=== PATIENT | male | born 1990 | race Two or more races ===

== ENCOUNTER 2018-06-29 00:10 | Observation (INO) | payer MEDICAID ==
[2018-06-29] MEDS ORDERED: FENTANYL CITRATE INJ/PF 100 MCG/2 ML AMPUL IV ONE (00:52)
[2018-06-29] MEDS ORDERED: NORMAL SALINE 1000 ML 1,000 ML IV ONE ×2 (00:52→03:35)
[2018-06-29] MEDS ORDERED: ONDANSETRON HCL INJ/PF 4 MG/2 ML SDV IV ONE (00:53)
[2018-06-29 01:06] LABS: ABSOLUTE BASOPHILS # (AUTO) 0.1 10^3/uL (0.0-0.2); ABSOLUTE EOSINOPHILS # (AUTO) 0.2 10^3/uL (0.0-0.6); ABSOLUTE LYMPHOCYTES (AUTO) 2.2 10^3/uL (0.5-4.7); ABSOLUTE MONOCYTES (AUTO) 0.8 10^3/uL (0.1-1.4); ABSOLUTE NEUT (AUTO) 10.3 10^3/uL (1.7-8.2); BASOPHILS % (AUTO) 0.4 % (0-2); EOSINOPHILS % (AUTO) 1.6 % (0-6); HEMATOCRIT 44.5 % (37.9-51.0); HEMOGLOBIN 15.3 g/dL (13.5-17.0); LYMPHOCYTES % (AUTO) 16.4 % (13-45); MEAN CORPUSCULAR HEMOGLOBIN 30.8 pg (27.0-33.4); MEAN CORPUSCULAR HGB CONC 34.5 g/dL (32.0-36.0); MEAN CORPUSCULAR VOLUME 89 fl (80-97); PLATELET COUNT 286 10^3/uL (150-450); RED BLOOD COUNT 4.98 10^6/uL (4.35-5.55); RED CELL DISTRIBUTION WIDTH 13.1 % (11.5-14.0); SEGMENTED NEUTROPHILS % (AUTO) 75.6 % (42-78); TOTAL CELLS COUNTED % (AUTO) 100 %; WHITE BLOOD COUNT 13.6 10^3/uL (4.0-10.5)
[2018-06-29 01:25] LABS: ALANINE AMINOTRANSFERASE 59 U/L (21-72); ALBUMIN 4.9 g/dL (3.5-5.0); ALKALINE PHOSPHATASE 73 U/L (38-126); ANION GAP 13 (5-19); ASPARTATE AMINO TRANSFERASE 21 U/L (17-59); BILIRUBIN,DIRECT 0.3 mg/dL (0.0-0.4); BILIRUBIN,TOTAL 0.6 mg/dL (0.2-1.3); BLOOD UREA NITROGEN 12 mg/dL (7-20); CALCIUM 9.8 mg/dL (8.4-10.2); CARBON DIOXIDE 25 mmol/L (22-30); CHLORIDE 103 mmol/L (98-107); GLUCOSE 129 mg/dL (75-110); POTASSIUM 3.6 mmol/L (3.6-5.0); TOTAL PROTEIN 7.8 g/dL (6.3-8.2)
[2018-06-29] MEDS ORDERED: KETOROLAC TROMETHAMINE INJ/PF 30 MG/1 ML SDV IV ONE (01:53)
--- NOTE | 2018-06-29 03:23 | RADIOLOGY REPORT (SQ) ---
EXAM DESCRIPTION: US ABDOMEN LIMITED COMPLETED DATE/TME: 06/29/2018 01:02 CLINICAL HISTORY: abdominal pain COMPARISON: None. TECHNIQUE: Real-time sonographic images of the right upper abdomen were obtained using a curved multihertz transducer. FINDINGS: Pancreas: Pancreas is poorly visualized. Vascular: The visualized portions of the aorta and IVC are unremarkable. Liver: The liver has normal contour and increased echogenicity. Hepatopedal flow in the portal vein. Findings confirmed with color and spectral Doppler imaging. The common bile duct measures 0.4 cm. Gallbladder: Echogenic structure with posterior shadowing in the gallbladder lumen near the gallbladder neck. Positive reported sonographic Florentino sign. No pericholecystic fluid or gallbladder wall thickening. Right Kidney: The right kidney measures 11.2 cm in length. No hydronephrosis, solid renal mass, or shadowing calculi. IMPRESSION: 1. Cholelithiasis with positive reported sonographic Florentino sign. These findings could be seen with acute cholecystitis. 2. Hepatic steatosis.
[2018-06-29] MEDS ORDERED: NORMAL SALINE 1000 ML 1,000 ML IV PRN (03:36)
[2018-06-29] MEDS ORDERED: PIPERACILLIN/TAZOBACTAM 3.375 GM VIAL IV ONE (03:38)
--- NOTE | 2018-06-29 04:00 | ER Document Report ---
ED General - General Chief Complaint: Abdominal Pain Stated Complaint: ABDOMINAL PAIN Time Seen by Provider: 06/29/18 00:48 Mode of Arrival: Ambulatory Information source: Patient Notes: Patient is a 28-year-old male who presents with right upper quadrant abdominal pain. He has a friend who is an chemical analyst at bedside. He states his pain started this evening before he went to bed, but now is getting worse. He feels it is a sharp pain. He reports he has not ate anything out of the usual. The patient is rocking back and forth due to his pain. He has taken some "German stomach medicine" to help with his pain, but it has not helped. TRAVEL OUTSIDE OF THE [place] IN LAST 30 DAYS: No - Related Data Allergies/Adverse Reactions: No Known Allergies Allergy (Unverified 06/29/18 00:13) Past Medical History - General Information source: Friend - Social History Smoking Status: Current Every Day Smoker Chew tobacco use (# tins/day): No Frequency of alcohol use: None Drug Abuse: None Family History: Reviewed & Not Pertinent Patient has suicidal ideation: No Patient has homicidal ideation: No Renal/ Medical History: Denies: Hx Peritoneal Dialysis Review of Systems - Review of Systems Notes: REVIEW OF SYSTEMS: CONSTITUTIONAL : Denies fever, chills, or sweats. Denies recent illness. EENT: Denies eye, ear, throat, or mouth pain or symptoms. Denies nasal or sinus congestion. CARDIOVASCULAR: Denies chest pain. RESPIRATORY: Denies cough, cold, or chest congestion. Denies shortness of breath, difficulty breathing, or wheezing. GASTROINTESTINAL: Positive for abdominal pain. Denies constipation. Last BM: 06/28/18 GENITOURINARY: Denies difficulty urinating, painful urination, burning, frequency, or blood in urine. MUSCULOSKELETAL: Denies neck or back pain or joint pain or swelling. SKIN: Denies rash or skin lesions. HEMATOLOGIC : Denies easy bruising or bleeding. LYMPHATIC: Denies swollen, enlarged glands. NEUROLOGICAL: Denies altered mental status or loss of consciousness. Denies headache. Denies weakness or paralysis or loss of use of either side. Denies problems with gait or speech. Denies sensory or motor loss. PSYCHIATRIC: Denies anxiety or stress or depression. ALL OTHER SYSTEMS REVIEWED AND NEGATIVE. Physical Exam - Vital signs Vitals: Temp Pulse Resp BP Pulse Ox 98.7 F 85 24 H 137/89 H 100 06/29/18 00:16 06/29/18 00:16 06/29/18 00:16 06/29/18 00:16 06/29/18 00:16 - Notes Notes: PHYSICAL EXAMINATION: GENERAL: Well-appearing, well-nourished and in no acute distress. HEAD: Atraumatic, normocephalic. EYES: Pupils equal round and reactive to light, extraocular movements intact, sclera anicteric, conjunctiva are normal. ENT: nares patent, oropharynx clear without exudates. Moist mucous membranes. NECK: Normal range of motion, supple without lymphadenopathy LUNGS: Breath sounds clear to auscultation bilaterally and equal. No wheezes rales or rhonchi. HEART: Regular rate and rhythm without murmurs ABDOMEN: normoactive bowel sounds. Positive Florentino sign. EXTREMITIES: Normal range of motion, no pitting or edema. No cyanosis. NEUROLOGICAL: No focal neurological deficits. Moves all extremities spontaneously and on command. PSYCH: Normal mood, normal affect. SKIN: Warm, Dry, normal turgor, no rashes or lesions noted. Course - Re-evaluation Re-evalutation: 06/29/18 0130 patient is complaining of right upper quadrant pain at this time. He has a positive Florentino sign. He states he has not ate anything out of the usual this evening. He has been having regular bowel movements. 06/29/18 02:00 Patient's labs have been reviewed and he has a leukocytosis of 13,000. Possible differential diagnosis include, cholelithiasis, cholecystitis, nephrolithiasis, diverticulitis, diverticulosis. 06/29/18 0345 patient's right upper quadrant ultrasound shows acute cholecystitis. Patient and his family have been updated on these results. I will call Dr. Robledo for admission. 06/29/18 04:00 Dr. Robledo at bedside to speak with patient in regards to surgery. Will be admitted to the surgical service for observation. - Vital Signs Vital signs: Temp Pulse Resp BP Pulse Ox 98.7 F 85 19 127/77 H 97 06/29/18 00:16 06/29/18 00:16 06/29/18 05:01 06/29/18 05:01 06/29/18 05:01 - Laboratory Result Diagrams: 06/29/18 00:45 06/29/18 00:45 Laboratory results interpreted by me: 06/29/18 06/29/18 06/29/18 00:45 00:45 03:37 WBC 13.6 H Absolute Neutrophils 10.3 H Glucose 129 H Urine Protein 30 H Urine Ketones 20 H Urine Urobilinogen 2.0 H Discharge - Discharge Clinical Impression: Acute cholecystitis Disposition: ADMITTED OBSERVATION Admitting Provider: Surgicalist Unit Admitted: Surgical Floor
[2018-06-29 04:25] LABS: APPEARANCE,URINE CLOUDY; BILIRUBIN,URINE NEGATIVE (NEGATIVE); COLOR,URINE YELLOW; GLUCOSE, URINE NEGATIVE (NEGATIVE); KETONES,URINE 20 mg/dL (NEGATIVE); LEUKOCYTE ESTERASE,URINE NEGATIVE (NEGATIVE); NITRITE,URINE NEGATIVE (NEGATIVE); PROTEIN,URINE 30 mg/dL (NEGATIVE)
--- NOTE | 2018-06-29 04:34 | PDOC H&P ---
History of Present Illness Admission Date/PCP: 06/29/18 04:17 Patient complains of: Abdominal pains History of Present Illness: LAKIA CRANE is a 28 year old male who suddenly c/o RUQ pains at 11pm last night after a fatty meal. This was associated with nausea. Denies fever or chills. US of RUQ showed gallstones with thickened gallbladder wall. WBC is 13.7. Social History Smoking Status: Current Every Day Smoker Frequency of Alcohol Use: None Hx Recreational Drug Use: No - Advance Directive Resuscitation Status: Full Code Family History Parental Family History Reviewed: Yes - healthy Children Family History Reviewed: No Sibling(s) Family History Reviewed.: No Medication/Allergy Allergies/Adverse Reactions: No Known Allergies Allergy (Unverified 06/29/18 00:13) Review of Systems Constitutional: PRESENT: as per HPI Eyes: PRESENT: other - no visual/hearing changes Cardiovascular: PRESENT: other - no chest pains/cough Gastrointestinal: PRESENT: abdominal pain, nausea Genitourinary: PRESENT: other - no dysuria Neurological: PRESENT: other - no seizures Physical Exam Vital Signs: Temp Pulse Resp BP Pulse Ox 98.7 F 85 18 127/83 H 99 06/29/18 00:16 06/29/18 00:16 06/29/18 04:01 06/29/18 04:01 06/29/18 04:01 General appearance: PRESENT: mild distress Head exam: PRESENT: atraumatic Eye exam: PRESENT: conjunctiva pink Mouth exam: PRESENT: moist Neck exam: PRESENT: full ROM Respiratory exam: PRESENT: clear to auscultation lidia Cardiovascular exam: PRESENT: RRR Pulses: PRESENT: normal radial pulses Vascular exam: PRESENT: normal capillary refill GI/Abdominal exam: PRESENT: soft, tenderness - mild RUQ tenderness Rectal exam: PRESENT: deferred Extremities exam: PRESENT: full ROM Musculoskeletal exam: PRESENT: ambulatory Neurological exam: PRESENT: alert, oriented to person, oriented to place, oriented to time, oriented to situation Psychiatric exam: PRESENT: appropriate affect Skin exam: PRESENT: normal color, warm Results Impressions: Abdomen Ultrasound 06/29/18 01:02 IMPRESSION: 1. Cholelithiasis with positive reported sonographic Florentino sign. These findings could be seen with acute cholecystitis. 2. Hepatic steatosis. Assessment & Plan - Diagnosis (1) Cholelithiasis and acute cholecystitis without obstruction Is this a current diagnosis for this admission?: Yes - Time Time Spent: 30 to 50 Minutes - Inpatient Certification Medical Necessity: Need For IV Fluids, Need for Pain Control, Need for IV Antibiotics, Need for Surgery - Plan Summary Plan Summary: NPO IV antibiotics Hydrate
[2018-06-29] MEDS ORDERED: DEXTROSE 40% GEL 15 GM TUBE PO PRN ×2 (04:35)
[2018-06-29] MEDS ORDERED: GLUCAGON,HUMAN RECOMB 1 MG INJ SUBCUT PRN (04:35)
[2018-06-29] MEDS ORDERED: DEXTROSE 50%-WATER 25 GM/50 ML DISP.SYRIN IV PRN ×2 (04:35)
[2018-06-29] MEDS ORDERED: ONDANSETRON HCL INJ/PF 4 MG/2 ML SDV IV PRN (04:35)
[2018-06-29] MEDS ORDERED: HYDROMORPHONE HCL INJ/PF 2 MG/ML AMPULE IV PRN (04:40)
[2018-06-29] MEDS ORDERED: PIPERACILLIN/TAZOBACTAM 3.375 GM VIAL IV SCH ×2 (04:45→06:00)
[2018-06-29] MEDS: DEXTROSE 5%-LACTATED RINGERS 1,000 ML IV PRN ×2 (05:49→13:09)
--- NOTE | 2018-06-29 08:21 | Progress Note ---
Provider Note Provider Note: Patient seen and examined. Patient has moderate tenderness in the right upper quadrant. Currently, the patient is not interested in surgical intervention. He wishes to try intravenous antibiotics and bowel rest. I will comply with the patient's wishes. Continue antibiotics.
[2018-06-29] MEDS ORDERED: PIPERACILLIN SODIUM/TAZOBACTAM 3.375 GM in NORMAL SALINE 100 ML IV SCH (09:00)
[2018-06-29 13:25] VITALS: BP 118/60
--- NOTE | 2018-07-02 11:26 | PDOC DISCHARGE SUMMARY ---
General - Admit/Disc Date/PCP Admission Date/Primary Care Provider: 06/29/18 04:17 Discharge Date: 06/29/18 - Discharge Diagnosis (1) Acute cholecystitis Is this a current diagnosis for this admission?: Yes - Additional Information Resuscitation Status: Full Code Home Medications: No Home Medications 06/29/18 History of Present Illness History of Present Illness: LAKIA CRANE is a 28 year old male admitted with acute cholecystitis. The patient refused surgical intervention and was started on antibiotics. Hospital Course Hospital Course: Discussion was held with the patient regarding treatment. The patient was offered surgery, but refused. The patient then left the hospital AGAINST MEDICAL ADVICE. Physical Exam Vital Signs: Temp Pulse Resp BP Pulse Ox 98.2 F 66 16 118/60 99 06/29/18 13:00 06/29/18 13:00 06/29/18 13:00 06/29/18 13:00 06/29/18 13:00 Results Impressions: Abdomen Ultrasound 06/29/18 01:02 IMPRESSION: 1. Cholelithiasis with positive reported sonographic Florentino sign. These findings could be seen with acute cholecystitis. 2. Hepatic steatosis. Qualifiers - * PATIENT BEING DISCHARGED WITH ANY OF THE FOLLOWING DIAGNOSIS: No Plan Discharge Plan: Surgery was recommended for the patient's acute cholecystitis, but the patient left the hospital AGAINST MEDICAL ADVICE.
== END 2018-06-29 15:17 | disposition left against medical advice (07) ==
LOC: ER 00:10 → EH 04:17 → 5 05:40
PROVIDERS: ATTEND Surgery
DX: K80.00 Calculus of gallbladder with acute cholecystitis without obstruction (principal); Z53.21 Procedure and treatment not carried out due to patient leaving prior to being seen by health care provider; Z53.29 Procedure and treatment not carried out because of patient's decision for other reasons; F17.200 Nicotine dependence, unspecified, uncomplicated
CPT/HCPCS: 99285; 96361; 96375; 96365; 36415; 83690; 85025; 80053; 81001; 76705; G0378 ×2; J3010; J1885; J2405; J7030; J2543